=== PATIENT | female | born 1960 | race Caucasian/White ===

== ENCOUNTER 2021-11-30 18:15 | Emergency (ER) | payer OTHER ==
[2021-11-30] MEDS ORDERED: WALKER (21:25)
[2021-11-30] MEDS ORDERED: ULTRA-LIGHT RO1 EACH MC (21:29)
== END 2021-11-30 21:53 | disposition home or self-care (01) ==
LOC: ER1 18:15
DX: S83.92XA Sprain of unspecified site of left knee, initial encounter (principal); I10 Essential (primary) hypertension; X50.9XXA Other and unspecified overexertion or strenuous movements or postures, initial encounter
CPT/HCPCS: 73564; 99283